=== PATIENT | male | born 1965 | race Caucasian/White ===

== ENCOUNTER → 2021-12-19 13:42 | Outpatient (CLI) | payer OTHER, SELFPAY ==
--- NOTE | 2021-12-19 13:49 | CA_ITS ---
APPROVED REPORT EXAM: Comprehensive 2D, Doppler, and color-flow Echocardiogram [employer] Laborer: Lacey Milligan RVT Ht: 5 ft 10 in Wt: 210lbs BSA: 2.13 BP: 145/76 mmHg Indications: CP,SOA,SMOKER,ABN EKG 2D Dimensions IVSd 1.32 cm M: 0.6-1.2 LVEF (Visual) 77.00 % PWd 1.20 cm M: 0.6 - 1.2 LA Volume 48.90 mL LVDd 3.78 cm M: 4.2 - 5.9 LA Volume Index 22.95 mL/m2 (M/F) 16-34 LVDs 2.08 cm M: 2.5 - 4.0 LVOT 2.04 cm (M/F) 1.5-2.5 M-Mode Dimensions RVDd 3.53 cm (0.9-2.6) LA Diam 4.30 cm (1.9-4.0) LVDd 4.38 cm (3.5-5.7) Ao Diam 3.56 cm (2.0-3.7) LVDs 2.34 cm (3.5-5.7) IVSd 1.61 cm (0.6-1.1) PWd 1.49 cm (0.6-1.1) EF (Teich) 78.20% FS 46.60% EDV (Teich) 86.80 mL ESV (Teich) 18.90 mL LV Diastology E Decel Time 220.00 (160-240 msec) E/A Ratio 0.9 MED E' 4.70 (< 7 cm/sec) E'/MED E' Ratio 14.32 (>14) LAT E' 6.20 (<10 cm/sec) E/LAT E' Ratio 10.85 (>14) Aortic Valve AI PHT 704.00 ms Mitral Valve MV E Max Nav. 67.00 (40-130 cm/s) MV A Velocity 73.00 (40-130 cm/s) E/A Ratio 0.93 MV Decel. Time 220.00 (160-240 ms) MV PHT 64.00 ms Pulmonary Valve PV Peak Velocity 98.00 (50-150 cm/s) Tricuspid Valve TR P. Velocity 222.00 cm/s RAP Estimate 10.00 mmHg RVSP 29.70 mmHg Left Ventricle Left atrium is mildly enlarged, left ventricle is normal size, mild concentric left ventricular hypertrophy, visually estimated ejection fraction 55% with no regional wall motion abnormality, grade 1 diastolic dysfunction seen without tissue Doppler evidence of raise left atrial pressure. Right Ventricle Right atrium and right ventricle mildly enlarged with normal contractility. Aortic Valve Valve is minimally thickened and fibrosed, there is no aortic stenosis, there is trace aortic insufficiency. Mitral Valve Mitral valve grossly normal, there is trace mitral regurgitation. Tricuspid Valve Tricuspid valve grossly normal, there is trace tricuspid regurgitation, tricuspid rotation jet velocity is inadequate for calculation of the right ventricular systolic pressure. Pulmonic Valve Pulmonic valve is poorly visualized. Great Vessels Aortic root is normal size. Inferior vena cava is normal size with normal inspiratory collapse. Pericardium No significant pericardial effusion noted. Conclusion 1. Mild biatrial enlargement, normal left ventricular size, mild concentric left ventricular hypertrophy, visually estimated ejection fraction 55% with no regional wall motion abnormality, grade 1 diastolic dysfunction seen without tissue Doppler evidence of raise left atrial pressure. 2. Mildly enlarged right ventricle with normal contractility. 3. Trace aortic, mitral and tricuspid regurgitation. 4. No significant pericardial effusion. 5. Inferior vena cava normal size with normal inspiratory collapse. Electronically signed by : Justus Tao MD 12/19/2021 19:22:52
--- NOTE | 2021-12-19 14:30 | XR_ITS ---
FINAL REPORT CLINICAL HISTORY: chest pain/abnl ecg FINDINGS: Two views of the chest were obtained. The heart size and pulmonary vascularity are within normal limits. The mediastinum is normal. No acute pulmonary abnormality is identified. There is no pneumothorax. There is degenerative change of the thoracic spine. IMPRESSION: No active cardiopulmonary disease. Reviewed, Interpreted and Dictated by Sriram Olson III, MD Transcribed by Bhakti Aponte Authenticated by Sriram Olson III, MD on 12/19/2021 04:41:10 PM [facility] [place]
[2021-12-19 14:50] LABS: Basophils # 0.1 K/mm3 (0-0.2); Eosinophils # 0.1 K/mm3 (0.0-0.4); Eosinophils % 1.4 % (0.1-12.0); Hematocrit 44.7 % (42.0-52.0); Lymphocytes # 1.4 K/mm3 (0.7-4.5); Lymphocytes % 24.2 % (10-50); Mean Corpuscular HGB Conc 33.6 g/dL (31.8-35.4); Mean Corpuscular Hemoglobin 34.3 pg (27.0-31.2); Mean Platelet Volume 7.9 fl (7.4-10.4); Monocytes # 0.2 K/mm3 (0.1-1.0); Monocytes % 4.1 % (1.7-9.3); Neutrophils # 4.1 K/mm3 (1.8-7.8); Neutrophils % 69.5 % (37.0-80.0); Platelet Count 214 K/mm3 (142-424); Red Blood Count 4.38 M/mm3 (4.60-6.20); Red Cell Distribution Width 13.6 % (11.5-17.5); White Blood Count 5.8 K/mm3 (4.8-10.8)
[2021-12-19 15:03] LABS: D-Dimer 0.48 ug/mL (0.0-0.5)
[2021-12-19 15:23] LABS: Alanine Aminotransferase 27 U/L (12-78); Albumin Level 4.6 g/dl (3.5-5.0); Alkaline Phosphatase 49 U/L (38-126); Anion Gap 9.9 mEq/L (5-15); Aspartate Amino Transferase 29 U/L (17-59); Bilirubin,Direct 0.2 mg/dl (0.0-0.4); Bilirubin,Indirect 0.3 mg/dL (0.0-0.9); Bilirubin,Total 0.5 mg/dl (0.2-1.3); Bilirubin,Unconjugated 0.3 mg/dL (0.0-1.1); Blood Urea Nitrogen 9 mg/dl (9-20); Calcium 8.8 mg/dl (8.4-10.2); Carbon Dioxide 26 mmol/L (22.0-30.0); Chloride 108 mmol/L (98-107); Chol/HDL Ratio 2.7 (1-3.5); Cholesterol 144 mg/dl (140-200); Estimated Glomerular Filt Rate 101 ml/min (>60); GFR (African American) 122 ML/MIN (>60); Glucose 110 mg/dl (74-100); HDL Cholesterol 53 mg/dl (40-60); Potassium 3.9 mmoL/L (3.5-5.1); Sodium 140 mmol/L (136-145); Total Protein,Serum 6.7 g/dl (6.3-8.2); Triglycerides 175 mg/dl (30-150); VLDL Cholesterol 35 mg/dL (0-40)
[2021-12-19 15:39] LABS: Free T4 (Free Thyroxine) 0.72 ng/dl (0.78-2.19)
[2021-12-19 15:42] LABS: Troponin I < 0.01 ng/ml (0.00-0.034)
[2021-12-19 15:53] LABS: Thyroid Stimulating Hormone 0.97 uIU/mL (0.465-4.68)
== END ==
PROVIDERS: Visit Provider Internal Medicine
DX: R07.9 Chest pain, unspecified (principal); R94.31 Abnormal electrocardiogram [ECG] [EKG]; I10 Essential (primary) hypertension
CPT/HCPCS: 71046; 80048; 80061; 80076; 84439; 84443; 84484; 85025; 85378; 93306

== ENCOUNTER → 2021-12-28 10:54 | Outpatient (CLI) | payer BC, SELFPAY ==
--- NOTE | 2021-12-28 | CA_ITS ---
APPROVED REPORT Exam: Exercise Treadmill Technologist: Keiko Kelly Ht: 5 ft 10 in Wt: 210 lbs BSA: 2.13 m2 HR: 70 bpm BP: 154/98 mmHg Indications: CP Medical History Medications: BisOPROLOL - HCTZ,,,,, Stress Test Details Test: Jaden HR Resting HR: 78 bpm Max Heart Rate (APMHR): 166.198460 bpm Max HR Achieved: 133 bpm Target HR (85% APMHR): 141.669182 bpm % of APMHR: 80.12 Recovery HR: 89 bpm BP Resting BP: 154.0/98.0 mmHg Max BP: 175.0/94.0 mmHg Recovery BP: 149.0/100.0 mmHg ECG Resting ECG: Normal sinus rhythm, rightward axis, PAC Clinical Exercise duration: 09:00 min Highest Stage Achieved: Exercise capacity: 10.1 METs Stress ECG Conclusion Patient exercised 9:00 on Jaden Protocol, completing stage III. Test stopped due to shortness of air, fatigue. Symptoms: No chest pain Arrhythmias/Ectopy: Occasional PVC ST-T Changes: Normal ST response to exercise. Conclusion: Normal GXT to heart rate achieved (80% of PM). Myoview images reported separately. Test Summary RECOVERY 05:24 0.0 0.0 88 . 149/100 . . REST . . . . . . . Standing REST 05:43 0.0 0.0 78 . 154/ 98 . . Stage 1 01:00 10.0 1.7 102 . . . . Stage 1 02:00 10.0 1.7 106 . . . . Stage 1 03:00 10.0 1.7 108 . 175/ 94 . . Stage 2 01:00 12.0 2.5 117 . . . . Stage 2 02:00 12.0 2.5 119 . . . . Stage 2 03:00 12.0 2.5 123 . 175/ 90 . . Stage 3 01:00 14.0 3.4 132 . . . . Stage 3 . . . . . . . Myoview Injected Stage 3 02:00 14.0 3.4 132 . . . . Stage 3 03:00 14.0 3.4 133 . . . Stop exercise at 09:00 RECOVERY 01:00 0.0 0.0 99 . . . . RECOVERY 02:00 0.0 0.0 94 . 160/ 90 . . RECOVERY 03:00 0.0 0.0 93 . 160/ 90 . . RECOVERY 04:00 0.0 0.0 96 . 149/ 97 . . RECOVERY 05:00 0.0 0.0 87 . 149/ 97 . . RECOVERY 05:24 0.0 0.0 88 . 149/100 . . Electronically signed by : Justus Tao MD 12/28/2021 19:34:10
--- NOTE | 2021-12-28 10:55 | NM_ITS ---
APPROVED REPORT Exam: Nuclear Stress Test Indication: HTN, TOB USE, C.P., SOB, FATIGUE, ABN EKG Patient Location: Outpatient Stress Tech: Keiko Kelly [place] Tech:Norma Garcia TERESAT RT (R)(N)(M) Ht: 5 ft 10 in Wt: 220 lbs HR: 70 bpm BP: 154/98 mmHg BSA: 2.17 m2 BMI: 31.5 History: HTN, TOB USE, C.P., SOB, FATIGUE, ABN EKG Procedure: Patient exercised on Jaden protocol 9:00 minutes and sec, resting heart rate 70 bpm, resting blood pressure 154/98 mmHg, with exercise maximum heart rate achived was 133 bpm which is 80 % of the maximum predicted heart rate and blood pressure was 175/90 mmHg. Test was stopped due to FATIGUE. Patient denied any complaint of chest pain. Patient has good exercise capacity, achieved 10.1 METs of workload on treadmill, the blood pressure response to exercise was Adequate. Electrocardiogram Resting electrocardiogram shows sinus rhythm, with exercise there is less than 1.[address] segment depression from the baseline EKG. The EKG portion of the exercise Myoview was nondiagnostic as patient did not achieve the target heart rate. Cardiac Stress and Resting SPECT Images: Cardiac Stress and Resting SPECT images were obtained using technetium 99m Myoview 32.1 mCi stress and 10.73 mCi at rest. Gated SPECT for analysis of segmental wall motion and calculation of the ejection fraction also done. Cardiac stress and resting SPECT images show uniform myocardial activity without segmental perfusion abnormality, computer derived ejection fraction is 53% with no regional wall motion abnormality, right ventricle is normal size and contractility. Conclusion: 1. The EKG portion of the exercise Myoview is nondiagnostic as patient did not achieve the target heart rate, patient has good exercise capacity achieved 10.1 METs of workload on treadmill, the blood pressure response to exercise was adequate, there was no exercise-induced chest discomfort. 2. No scintigraphic evidence of reversible ischemia seen at this level of exercise, computer derived ejection fraction is 53% with no regional wall motion abnormality, right ventricle is normal size and contractility. Electronically signed by : Justus Tao MD 12/28/2021 19:37:57
--- NOTE | 2021-12-28 12:57 | HMH.ITSHM ---
Current Home Medications as stated by this patient Dennys Munoz or paper sales representative. []BISOPROLOL
== END ==
PROVIDERS: Visit Provider Internal Medicine
DX: R07.9 Chest pain, unspecified (principal); I10 Essential (primary) hypertension; I27.23 Pulmonary hypertension due to lung diseases and hypoxia; G47.30 Sleep apnea, unspecified; R06.83 Snoring; R40.0 Somnolence; R94.31 Abnormal electrocardiogram [ECG] [EKG]; Z72.0 Tobacco use
CPT/HCPCS: 78452; 93017; A9502; G0399